=== PATIENT | male | born 1965 ===

== ENCOUNTER 2017-06-16 15:10 | Emergency (ER) | payer BC ==
[2017-06-16 15:15] VITALS: BP 111/66; PULSE 68; RESP 18; TEMP 98.3; O2SAT 99
[2017-06-16] MEDS ORDERED: Tetanus/Diphtheria Toxoids 0.5 ml Syringe IM ONE ×2 (15:36→15:41)
[2017-06-16] MEDS ORDERED: Tmp-Smz 800 mg-160 mg DS Tab PO STA (15:37)
[2017-06-16] MEDS ORDERED: Lidocaine 1% Inj (20ml) INFIL ONE (15:38)
[2017-06-16] MEDS ORDERED: Tmp-Smz 800 mg-160 mg DS Tab ONE (15:41)
[2017-06-16] MEDS ORDERED: Lidocaine 1% Inj (20ml) ONE (15:45)
--- NOTE | 2017-06-16 15:59 | RAD ---
PROCEDURE: Left Hand Radiographs. HISTORY: LEFT HAND LACERTION, R/O FX (INDEX FINGER/PALM) COMPARISON: None. FINDINGS: BONES: No evidence of fracture. . JOINTS: Normal. No osteoarthritic changes. SOFT TISSUES: No radiopaque foreign body. OTHER FINDINGS: None. IMPRESSION: No radiopaque foreign body identified. No acute fracture.
[2017-06-16] MEDS ORDERED: Bacitracin 500 Units/gm Oint Foilpak UD TOP ONE (16:46)
--- NOTE | 2017-06-16 16:47 | C.PDOC ---
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 He is unsure of his tetanus vaccination status. Patient denies decreased sensation, decreased mobility of digits, or other injuries. 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) Quality Of Symptoms: Painful Severity: Mild Past Medical History Reviewed: Historical Data, Nursing Documentation, Vital Signs Vital Signs: Last Vital Signs Temp 98.3 F 06/16/17 15:13 Pulse 68 06/16/17 15:13 Resp 18 06/16/17 15:13 BP 111/66 06/16/17 15:13 Pulse Ox 99 06/16/17 18:13 - Medical History PMH: No Chronic Diseases Family History: States: No Known Family Hx - Social History Hx Alcohol Use: Yes Hx Substance Use: No - Immunization History Hx Tetanus Toxoid Vaccination: No Hx Influenza Vaccination: No Hx Pneumococcal Vaccination: No Review Of Systems Except As Marked, All Systems Reviewed And Found Negative. Constitutional: Negative for: Fever Musculoskeletal: Positive for: Other (Laceration to the right wallace aspect. ) Neurological: Negative for: Weakness, Numbness Physical Exam - Physical Exam Appears: Well, Non-toxic, No Acute Distress Skin: Normal Color, Warm, Dry, No Rash, Other (see extremity exam) Head: Normacephalic Oral Mucosa: Moist Cardiovascular: Rhythm Regular Respiratory: Normal Breath Sounds, No Rales, No Rhonchi, No Wheezing Extremity: Capillary Refill (<2 sec all digits ), No Deformity, No Swelling, Other ((+)approx 6cm laceration at the distal palm and proximal 1st digit. ROM intact at the digit. Sensation intact. ) Pulses: Left Radial: Normal, Right Radial: Normal Neurological/Psych: Oriented x3, Normal Sensation ED Course And Treatment O2 Sat by Pulse Oximetry: 99 (RA) Pulse Ox Interpretation: Normal - Other Rad X-Ray - Left Hand X-Ray: Viewed By Me, Read By Radiologist Interpretation: PROCEDURE: Left Hand Radiographs. HISTORY: LEFT HAND LACERTION, R/O FX (INDEX FINGER/PALM). COMPARISON: None. FINDINGS: BONES: No evidence of fracture. . JOINTS: Normal. No osteoarthritic changes. SOFT TISSUES: No radiopaque foreign body. OTHER FINDINGS: None. IMPRESSION: No radiopaque foreign body identified. No acute fracture. Progress Note: PLAN: X-Ray - Left Hand ordered and reviewed. Patient given IM tetanus vaccination, PO Bactrim and Keflex. Laceration repair done by me. Bacitracin and dressing applied to area by nurse after lac repair. Finger splint applied by medical office technologist. Patient tolerated procedure well. He was given Rxs for Bactrim, Kelfex, Naprosyn and instructed to follow up with hand surgeon within 1 week. Patient understands he should return to ED if symptoms worsen, such as redness, swelling, pain, fever, etc. Reevaluation Time: 17:10 Reassessment Condition: Improved Laceration - Laceration Repair Right Hand Wound Length (In cm): 6 Description Of Wound: Linear Wound Cleansed With: Sterile Saline Anesthesia: Lidocaine 1% Wound Examination: Irrigated With Saline (Local infiltrate, 4ml. ), No FB With Wound Exploration, No Tendon Injury With Wound Exploration Wound Closure: Suture Suture Technique And Material Used: Nylon (11 dermal nylon 3-0 ), Vicryl (3 subcutaneous, 4-0 ) Wound Complexity: Intermediate Disposition Counseled Patient/Family Regarding: Studies Performed, Diagnosis, Need For Followup, Rx Given - Disposition Referrals: Rachel Keita MD [Provisional Staff] - [facility] [Outside] Disposition: HOME/ ROUTINE Disposition Time: 17:10 Condition: STABLE Additional Instructions: FOLLOW UP WITH HAND SURGEON WITHIN 1 WEEK USE MEDICATIONS DIRECTED SUTURE REMOVAL IN 5-7 DAYS RETURN TO ER IF YOU DEVELOP FEVER, DISCHARGE, BLEEDING, REDNESS, OR OTHER CONCERNING SYMPTOMS Prescriptions: Cephalexin [Keflex] 500 mg PO BID #14 capsule Naproxen [Naprosyn Tab] 375 mg PO BID PRN #20 tab PRN Reason: pain Sulfamethoxazole/Trimethoprim [Bactrim DS 800 mg-160 mg] 1 tab PO BID #14 tab Instructions: Finger Laceration (ED) Forms: [email or web address] (Romansh) Print Language: ERITREAN - Clinical Impression Clinical Impression: Finger laceration - Scribe Statement The provider has reviewed the documentation as recorded by the Nachoibagustin Akers Provider Attestation: All medical record entries made by the Nachoibagustin were at my direction and personally dictated by me. I have reviewed the chart and agree that the record accurately reflects my personal performance of the history, physical exam, medical decision making, and the department course for this patient. I have also personally directed, reviewed, and agree with the discharge instructions and disposition.
[2017-06-16] MEDS ORDERED: Bacitracin 500 Units/gm Oint Foilpak UD ONE (16:55)
== END 2017-06-16 17:17 | disposition home or self-care (01) ==
LOC: C.ER 15:10
DX: S61.412A Laceration without foreign body of left hand, initial encounter (principal); W45.8XXA Other foreign body or object entering through skin, initial encounter

== ENCOUNTER 2018-07-26 08:58 | Emergency (ER) | payer BC ==
[2018-07-26 09:12] VITALS: BP 105/66; PULSE 96; RESP 18; TEMP 99.1; O2SAT 97
--- NOTE | 2018-07-26 13:45 | C.PDOC ---
History Of Present Illness 53 year old male presents to the emergency department with complaints of insomnia for the last five days. Patient states that he begins to fall asleep, and starts to cough which wakes him up. He states that he visited his PMD four days ago, and was prescribed antibiotics for an upper respiratory infection. Patient reports that his cough is better but he is still unable to sleep. Time Seen by Provider: 07/26/18 09:15 Chief Complaint (Nursing): Fever History Per: Patient History/Exam Limitations: no limitations Onset/Duration Of Symptoms: Days (5) Current Symptoms Are (Timing): Still Present Associated Symptoms: Cough, Other (insomnia) Past Medical History Reviewed: Historical Data, Nursing Documentation, Vital Signs Vital Signs: Last Vital Signs Temp 99.1 F 07/26/18 09:07 Pulse 96 H 07/26/18 09:07 Resp 18 07/26/18 09:49 BP 105/66 07/26/18 09:07 Pulse Ox 97 07/26/18 13:46 - Medical History PMH: No Chronic Diseases Surgical History: No Surg Hx Family History: States: No Known Family Hx - Social History Hx Alcohol Use: Yes Hx Substance Use: No - Immunization History Hx Tetanus Toxoid Vaccination: No Hx Influenza Vaccination: No Hx Pneumococcal Vaccination: No Review Of Systems Except As Marked, All Systems Reviewed And Found Negative. Respiratory: Positive for: Cough Neurological: Positive for: Other (insomnia) Physical Exam - Physical Exam Appears: Non-toxic, No Acute Distress Skin: Warm, Dry Head: Atraumatic, Normacephalic Eye(s): bilateral: Normal Inspection Neck: Normal, Supple Chest: Symmetrical, No Tenderness Cardiovascular: Rhythm Regular, No Murmur Respiratory: Normal Breath Sounds, No Rales, No Rhonchi, No Wheezing Extremity: Normal ROM (all extremities) Neurological/Psych: Oriented x3, Normal Speech, Normal Cognition ED Course And Treatment O2 Sat by Pulse Oximetry: 97 (RA) Pulse Ox Interpretation: Normal Disposition - Disposition Referrals: Guzman Kaminski MD [Staff Provider] - Disposition: HOME/ ROUTINE Disposition Time: 09:30 Condition: GOOD Additional Instructions: DHAVAL FREEMAN, thank you for letting us take care of you today. The emergency medical care you received today was directed at your acute symptoms. If you were prescribed any medication, please fill it and take as directed. It may take several days for your symptoms to resolve. Return to the Emergency Department if your symptoms worsen, do not improve, or if you have any other problems. Please contact your doctor or call one of the physicians/clinics you have been referred to that are listed on the Patient Visit Information form that is included in your discharge packet. Bring any paperwork you were given at discharge with you along with any medications you are taking to your follow up visit. Our treatment cannot replace ongoing medical care by a primary care provider outside of the emergency department. Thank you for allowing the [facility] team to be part of your care today. Follow up with your primary care doctor tomorrow for re-evaluation and further management. Prescriptions: Benzonatate [Tessalon Perle] 100 mg PO Q8 PRN #15 capsule PRN Reason: Cough Zolpidem [Ambien] 5 mg PO QPM PRN #5 tab PRN Reason: Insomnia Instructions: Insomnia (DC), Tips for Getting Better Sleep Forms: [employer] ([place]i) - Clinical Impression Clinical Impression: Insomnia - Scribe Statement The provider has reviewed the documentation as recorded by the Scribe (Laith Ayers) Provider Attestation: All medical record entries made by the Scribe were at my direction and personally dictated by me. I have reviewed the chart and agree that the record accurately reflects my personal performance of the history, physical exam, medical decision making, and the department course for this patient. I have also personally directed, reviewed, and agree with the discharge instructions and disposition.
== END 2018-07-26 09:51 | disposition home or self-care (01) ==
LOC: C.ER 08:58
DX: G47.00 Insomnia, unspecified (principal)